=== PATIENT | female | born 1950 | race American Indian/Alaskan Native ===

== ENCOUNTER 2018-05-26 14:18 | Outpatient (REF) | payer MEDICARE, SELFPAY ==
[2018-05-26 21:50] LABS: BUN 19 mg/dL (7-18); CREATININE 0.95 mg/dL (0.55-1.02); Calcium 9.1 mg/dL (8.5-10.1); Chloride 103 mmol/L (98-107); Glucose 120 mg/dL (70-100); Potassium 4.1 mmol/L (3.5-5.1); Sodium 141 mmol/L (136-145)
== END 2018-05-26 14:38 ==
LOC: NCHCN 14:18
PROVIDERS: PCP Nurse Practitioner Family; Visit Provider Nurse Practitioner Family
DX: I10 Essential (primary) hypertension (principal); R21 Rash and other nonspecific skin eruption
CPT/HCPCS: 80048

== ENCOUNTER 2018-06-30 11:57 | Outpatient (REF) | payer OTHER, SELFPAY ==
[2018-06-30 22:08] LABS: ALT 28 U/L (12-78); AST 19 U/L (15-37); Alkaline Phosphatase 100 U/L (46-116); Anion Gap 9.2 mmol/L (3-11); BUN 15 mg/dL (7-18); Bilirubin, Total 0.8 mg/dL (0.2-1.0); CO2 29.8 mmol/L (21.0-32.0); CREATININE 1.09 mg/dL (0.55-1.02); Calcium 9.5 mg/dL (8.5-10.1); Chloride 105 mmol/L (98-107); Estimated GFR 49.92 (mL/min/1.73m2); Glucose 151 mg/dL (70-100); Potassium 4.5 mmol/L (3.5-5.1); Sodium 144 mmol/L (136-145)
[2018-07-04 11:28] LABS: Hepatitis C Ab w Rflx HCV PCR Negative (NEGAT)
== END 2018-06-30 12:17 ==
LOC: NCHCN 11:57
PROVIDERS: PCP Nurse Practitioner Family; Visit Provider Nurse Practitioner Family
DX: E11.9 Type 2 diabetes mellitus without complications (principal); I10 Essential (primary) hypertension; E78.00 Pure hypercholesterolemia, unspecified; F39 Unspecified mood [affective] disorder; G47.00 Insomnia, unspecified; L71.9 Rosacea, unspecified; Z11.59 Encounter for screening for other viral diseases
CPT/HCPCS: 80053; 86803

== ENCOUNTER 2019-01-26 11:07 | Outpatient (REF) | payer OTHER, SELFPAY ==
[2019-01-26 13:37] LABS: Anion Gap 11.2 mmol/L (3-11); BUN 17 mg/dL (7-18); CO2 27.8 mmol/L (21.0-32.0); CREATININE 0.95 mg/dL (0.55-1.02); Calcium 9.6 mg/dL (8.5-10.1); Chloride 103 mmol/L (98-107); Estimated GFR 58.33 (mL/min/1.73m2); Glucose 140 mg/dL (70-100); Potassium 4.6 mmol/L (3.5-5.1); Sodium 142 mmol/L (136-145)
== END 2019-01-26 11:27 ==
LOC: NCHCN 11:07
PROVIDERS: PCP Nurse Practitioner Family; Visit Provider Nurse Practitioner Family
DX: E11.9 Type 2 diabetes mellitus without complications (principal); I10 Essential (primary) hypertension; N18.9 Chronic kidney disease, unspecified; F39 Unspecified mood [affective] disorder; G47.00 Insomnia, unspecified
CPT/HCPCS: 80048

== ENCOUNTER 2020-09-16 01:13 | Outpatient (CLI) | payer OTHER, SELFPAY ==
--- NOTE | 2020-09-16 10:55 | DI.MAMMO_ITS ---
EXAM: MG MAMMO SCREENING CLINICAL HISTORY: SCREENING, Z12.31. TECHNIQUE: Bilateral full field digital CC and MLO mammographic images were obtained with 3D tomosyn thesis and utilizing computer aided detection (CAD). COMPARISON: Prior mammograms dating back to 2012, the most recent being March 2016. There are no interval mammograms since 2016. FINDINGS: There is some new vascular calcification in the left breast noted. Small benign-appearing microcalci fications are seen bilaterally including a small peripherally calcified oil cyst anteriorly in the ri ght breast. There are no malignant-appearing microcalcification groups in either breast. No new mas ses. There is no significant architectural distortion nor skin thickening-retraction. IMPRESSION: No radiographic evidence of malignancy. BI-RADS Category 1 - Negative Breast Density - Category B - Scattered areas of fibroglandular density Breast density Category C or D implies that the patient has dense breast tissue. Dense breast tissue can make it harder to find cancer on a mammogram. Dense breast tissue is also associated with an incr eased risk of breast cancer. This information about the result of the mammogram report was provided to the patient to raise their awareness. Use this report when you speak with the patient about their risks for breast cancer, which includes their family history. At that time, you may recommend additional screening tests (Ultrasoun d or MRI) as these tests may add significant information. A negative radiographic report should not delay biopsy if a dominant or clinically suspicious mass is present. Up to ten percent of cancers are not identified on mammography. A negative report may reinforce clinical impression. Adenosis and dense breasts may obscure an underlying neoplasm. False positive reports average 6 to 10%. Patient will receive a letter notifying them of these results.
== END 2020-09-16 01:33 ==
PROVIDERS: PCP Nurse Practitioner Family; Visit Provider Nurse Practitioner Family
DX: Z12.31 Encounter for screening mammogram for malignant neoplasm of breast (principal); N60.01 Solitary cyst of right breast
CPT/HCPCS: 77063; 77067

== ENCOUNTER 2021-05-08 12:56 | Outpatient (REF) | payer OTHER, SELFPAY ==
[2021-05-08 22:27] LABS: ALT 31 U/L (14-59); AST 17 U/L (15-37); Albumin 4.4 g/dL (3.4-5.0); Alkaline Phosphatase 90 U/L (46-116); Anion Gap 12.2 mmol/L (3-11); BUN 17 mg/dL (7-18); Bilirubin, Total 0.9 mg/dL (0.2-1.0); CO2 27.8 mmol/L (21.0-32.0); CREATININE 0.8 mg/dL (0.55-1.02); Calcium 9.7 mg/dL (8.5-10.1); Chloride 103 mmol/L (98-107); Glucose 159 mg/dL (74-106); Magnesium 2.2 mg/dL (1.8-2.4); Potassium 4.6 mmol/L (3.5-5.1); Sodium 143 mmol/L (136-145); Total Protein 7.1 g/dL (6.4-8.2); Vitamin B12 290 pg/mL (193-986)
== END 2021-05-08 12:57 | disposition home or self-care (01) ==
LOC: NCHCN 12:56
PROVIDERS: PCP Nurse Practitioner Family; Visit Provider Nurse Practitioner Family
DX: E11.9 Type 2 diabetes mellitus without complications (principal); N18.9 Chronic kidney disease, unspecified; I10 Essential (primary) hypertension; E78.00 Pure hypercholesterolemia, unspecified; G47.00 Insomnia, unspecified; F39 Unspecified mood [affective] disorder
CPT/HCPCS: 80053; 82607; 83735

== ENCOUNTER 2021-08-07 19:02 | Outpatient (REF) | payer OTHER, SELFPAY ==
[2021-08-07 14:36] LABS: Hemoglobin A1C 7.7 % (<5.7)
== END 2021-08-07 19:03 | disposition home or self-care (01) ==
LOC: NCHCN 19:02
PROVIDERS: PCP Nurse Practitioner Family; Visit Provider Nurse Practitioner Family
DX: E11.9 Type 2 diabetes mellitus without complications (principal); I10 Essential (primary) hypertension; E78.5 Hyperlipidemia, unspecified; N18.9 Chronic kidney disease, unspecified; G47.00 Insomnia, unspecified
CPT/HCPCS: 83036

== ENCOUNTER 2022-05-11 15:15 | Outpatient (REF) | payer OTHER, SELFPAY ==
[2022-05-11 15:44] LABS: ALT 24 U/L (14-59); AST 21 U/L (15-37); Alkaline Phosphatase 101 U/L (46-116); Anion Gap 9.9 mmol/L (3-11); BUN 17 mg/dL (7-18); CO2 29.1 mmol/L (21.0-32.0); CREATININE 0.8 mg/dL (0.55-1.02); Calcium 9.5 mg/dL (8.5-10.1); Chloride 103 mmol/L (98-107); Estimated GFR 78.24 (mL/min/1.73m2); Glucose 164 mg/dL (74-106); Potassium 4.2 mmol/L (3.5-5.1); Sodium 142 mmol/L (136-145); Total Protein 6.6 g/dL (6.4-8.2); Vitamin B12 332 pg/mL (193-986)
== END 2022-05-11 15:16 | disposition home or self-care (01) ==
LOC: NCHCN 15:15
PROVIDERS: PCP Nurse Practitioner Family; Visit Provider Nurse Practitioner Family
DX: N18.9 Chronic kidney disease, unspecified (principal); E11.9 Type 2 diabetes mellitus without complications; I10 Essential (primary) hypertension; G62.9 Polyneuropathy, unspecified; E78.5 Hyperlipidemia, unspecified; Z79.899 Other long term (current) drug therapy
CPT/HCPCS: 80053; 82607; 83735

== ENCOUNTER 2024-03-07 16:25 | Outpatient (REF) | payer MEDICARE, SELFPAY ==
[2024-03-07 21:18] LABS: ALT 226 U/L (14-59); AST 129 U/L (15-37); Albumin 4.1 g/dL (3.4-5.0); Alkaline Phosphatase 560 U/L (46-116); Bilirubin, Total 1.07 mg/dL (0.2-1.0); Calculated LDL 133 mg/dL (<100); Cholesterol 233 mg/dL (<200); HDL Cholesterol 71 mg/dL (40-60); Magnesium 1.9 mg/dL (1.8-2.4); Total Protein 6.7 g/dL (6.4-8.2); Triglyceride 148 mg/dL (<150); Vitamin B12 563 pg/mL (193-986)
[2024-03-07 21:40] LABS: Bilirubin, Direct 0.3 mg/dL (0.0-0.2)
== END 2024-03-07 16:26 | disposition home or self-care (01) ==
LOC: NCHCN 16:25
PROVIDERS: PCP Nurse Practitioner Family; Visit Provider Nurse Practitioner Family
DX: I10 Essential (primary) hypertension (principal)
CPT/HCPCS: 80061; 80076; 82607; 83735

== ENCOUNTER 2024-04-17 12:57 | Outpatient (REF) | payer MEDICARE, SELFPAY ==
[2024-04-17 17:10] LABS: ALT 19 U/L (14-59); AST 17 U/L (15-37); Alkaline Phosphatase 102 U/L (46-116); Bilirubin, Direct 0.2 mg/dL (0.0-0.2); Bilirubin, Total 0.96 mg/dL (0.2-1.0); TSH (W/Ref FT4) 1.58 uIU/mL (0.36-3.74); Total Protein 6.5 g/dL (6.4-8.2)
== END 2024-04-17 12:58 | disposition home or self-care (01) ==
LOC: NCHCN 12:57
PROVIDERS: PCP Nurse Practitioner Family; Visit Provider Nurse Practitioner Family
DX: R41.3 Other amnesia (principal); R10.13 Epigastric pain
CPT/HCPCS: 80076; 84443

== ENCOUNTER 2025-04-09 16:22 | Outpatient (REF) | payer MEDICARE, SELFPAY ==
[2025-04-09 21:46] LABS: ALT 19 U/L (14-59); AST 17 U/L (15-37); Albumin 4.2 g/dL (3.4-5.0); Alkaline Phosphatase 101 U/L (46-116); Anion Gap 8.9 mmol/L (3-11); BUN 14 mg/dL (7-18); Bilirubin, Total 0.9 mg/dL (0.2-1.0); CO2 30.1 mmol/L (21.0-32.0); Calcium 9.4 mg/dL (8.5-10.1); Chloride 100 mmol/L (98-107); Cholesterol 257 mg/dL (<200); Glucose 104 mg/dL (74-106); HDL Cholesterol 74 mg/dL (>or=50); Magnesium 2.0 mg/dL (1.8-2.4); Potassium 4.2 mmol/L (3.5-5.1); Sodium 139 mmol/L (136-145); TSH (W/Ref FT4) 2.21 uIU/mL (0.36-3.74); Total Protein 6.8 g/dL (6.4-8.2); Vitamin B12 293 pg/mL (193-986)
== END 2025-04-09 16:23 | disposition home or self-care (01) ==
LOC: NCHCN 16:22
PROVIDERS: PCP Nurse Practitioner Family; Visit Provider Nurse Practitioner Family
DX: I10 Essential (primary) hypertension (principal); E11.42 Type 2 diabetes mellitus with diabetic polyneuropathy; R41.3 Other amnesia
CPT/HCPCS: 80053; 80061; 82607; 83735; 84443